=== PATIENT | female | born 2000 | race Caucasian/White ===

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

== ENCOUNTER 2018-08-25 16:39 | Emergency (ER) | payer OTHER, SELFPAY ==
--- NOTE | 2018-08-25 16:59 | RAD ---
EXAM: 3 views of the left foot HISTORY: Heel pain COMPARISON: None FINDINGS: 3 views of the left foot shows no evidence of acute fracture or dislocation. No soft tissue swelling is seen. No degenerative changes are present. IMPRESSION: No evidence of acute osseous abnormality.
== END 2018-08-25 17:36 | disposition home or self-care (01) ==
LOC: ERS 16:39
DX: M79.672 Pain in left foot (principal); F31.9 Bipolar disorder, unspecified; F17.210 Nicotine dependence, cigarettes, uncomplicated

== ENCOUNTER 2018-11-14 18:33 | Emergency (ER) | payer SELFPAY ==
[2018-11-14] MEDS ORDERED: Acetaminophen 500 MG TAB ONE (19:55)
[2018-11-14] MEDS ORDERED: Metoclopramide HCl 10 MG/2 ML VIAL ONE (19:55)
[2018-11-14] MEDS ORDERED: Ketorolac Tromethamine 30 MG/ML VIAL ONE (19:55)
[2018-11-14] MEDS ORDERED: Ondansetron PF 4 MG/2 ML Vial ONE (19:55)
--- NOTE | 2018-11-14 20:11 | CT ---
BRAIN CT WITHOUT IV CONTRAST: History: Headache. Comparison: 05-20-17 FINDINGS: No focal mass or midline shift. No intra or extraaxial hemorrhage. Sinuses and mastoids are clear. IMPRESSION: No acute intracranial process. No mass or bleed. Stable from prior study. POS: [facility]
== END 2018-11-14 22:36 | disposition home or self-care (01) ==
LOC: ERS 18:33
DX: G43.909 Migraine, unspecified, not intractable, without status migrainosus (principal); F41.9 Anxiety disorder, unspecified; F31.9 Bipolar disorder, unspecified; F17.210 Nicotine dependence, cigarettes, uncomplicated
CPT/HCPCS: 70450; 96365; 96375; J1885; J2405; J2765

== ENCOUNTER 2019-03-16 10:28 | Emergency (ER) | payer OTHER ==
--- NOTE | 2019-03-16 14:43 | ULT ---
OBSTETRIC SONOGRAM: HISTORY: Pelvic pain. Evaluate viability. Second trimester gestation. FINDINGS: Single intrauterine gestation in variable presentation. Grade 0 placenta is posterior and to the mate rnal right. Amniotic fluid is within normal limits. No gross intracranial abnormalities are apparent. Four chamber heart motion at 140 beats per minute. spine and kidneys are intact as visualized. Cervix is closed and 3.1 cm. Measurements are as follows: Biparietal diameter: 17 weeks 0 days Head circumference: 17 weeks 1 day Abdominal circumference: 17 weeks 3 days Femur length: 17 weeks 4 days Hadlock: 53rd percentile Estimated date of delivery based on today's sonogram: 08/23/2019 IMPRESSION: Single viable intrauterine gestation. Estimated gestational age 17 weeks 1 day. No abnormalities are demonstrated. POS: [facility]
[2019-03-16 17:26] LABS: Bilirubin Negative (Negative); Blood, Urine Negative (Negative); Glucose, Urine (Dipstick) Negative (Negative); Leukocyte Negative (Negative); Nitrite Negative (Negative); Protein, Urine (Dipstick) Negative (Neg-Trace); Urobilinogen 0.2 mg/dL (Less than 2)
[2019-03-16 17:27] LABS: Bacteria/HPF Rare-Few HPF (None Seen); Clarity Clear (Clear); RBC/HPF 0-3 HPF (0-3); WBC/HPF 0-3 HPF (0-3)
== END 2019-03-16 14:55 | disposition home or self-care (01) ==
LOC: ERS 10:28
DX: O99.89 Other specified diseases and conditions complicating pregnancy, childbirth and the puerperium (principal); R10.9 Unspecified abdominal pain; Z3A.17 17 weeks gestation of pregnancy
CPT/HCPCS: 76815; 81001

== ENCOUNTER 2019-03-29 14:14 | Emergency (ER) | payer OTHER ==
[2019-03-29 15:06] LABS: #Eosinphils 0.1 thou/uL (0.0-0.7); #Lymphocytes 0.9 thou/uL (1.20-3.40); #Monocytes 0.7 thou/uL (0.11-0.59); %Basophils 0.5 % (0.0-1.0); %Lymphocytes 12.7 % (28.0-48.0); %Monocytes 11.1 % (0.0-4.0); %Neutrophils 74.6 % (31.0-61.0); Hemoglobin 12.6 g/dL (12.0-16.0); Mean Corpuscular HGB CONC 35.6 g/dL (32.0-36.0); Mean Corpuscular Hemoglobin 32.9 pg (25.0-35.0); Mean Corpuscular Volume 92.5 fL (78.0-98.0); Mean Platelet Volume 7.5 fL (7.4-10.4); Platelet Count 164 thou/uL (130-400); RBC Distribution Width 11.5 % (11.5-14.5); Red Blood Cell (RBC) Count 3.84 mill/uL (4.00-5.20); White Blood Cell (WBC) Count 6.7 thou/uL (4.8-10.8)
[2019-03-29 15:27] LABS: ALT (SGPT) 24 U/L (8-55); AST (SGOT) 23 U/L (5-34); Albumin 3.9 g/dL (3.5-5.0); Alkaline Phosphatase 57 U/L (40-100); Anion Gap 14 mmol/L (10-20); BUN (Urea Nitrogen) 6 mg/dL (7.0-18.7); Bilirubin, Total 0.3 mg/dL (0.2-1.2); Calc. Creatinine Clearance 0 mL/min (70-130); Calcium 8.8 mg/dL (7.8-10.44); Carbon Dioxide 21 mmol/L (22-29); Chloride 107 mmol/L (98-107); Estimated GFR-MDRD Greater than 90; Globulin 2.7 g/dL (2.4-3.5); Glucose 73 mg/dL (70-105); Potassium 3.7 mmol/L (3.5-5.1); Protein, Total 6.6 g/dL (6.0-8.3); Sodium 138 mmol/L (136-145)
[2019-03-29] MEDS ORDERED: Acetaminophen 1,000 MG in Premix Bag 1 BAG IVPB SCH (15:45)
[2019-03-29 15:54] LABS: Bilirubin Negative (Negative); Blood, Urine Negative (Negative); Clarity Clear (Clear); Glucose, Urine (Dipstick) Normal (Negative); Leukocyte Negative Leu/uL (Negative); Nitrite Negative (Negative); Protein, Urine (Dipstick) 10 mg/dL (Neg-Trace); Urobilinogen Normal mg/dL (Less than 2)
== END 2019-03-29 18:48 | disposition home or self-care (01) ==
LOC: ERS 14:14
DX: O99.512 Diseases of the respiratory system complicating pregnancy, second trimester (principal); J10.1 Influenza due to other identified influenza virus with other respiratory manifestations; O99.332 Smoking (tobacco) complicating pregnancy, second trimester; F17.210 Nicotine dependence, cigarettes, uncomplicated; Z3A.19 19 weeks gestation of pregnancy
CPT/HCPCS: 36415; 80053; 81003; 84702; 85025; 86900; 86901; 87086; 87804; 96361; 96365; J0131

== ENCOUNTER 2019-04-04 10:44 | Outpatient (CLI) | payer OTHER ==
--- NOTE | 2019-04-04 13:23 | ULT ---
OBSTETRIC SONOGRAM: Date: 04/04/19 HISTORY: evaluation. Second trimester gestation. FINDINGS: Single intrauterine gestation in breech presentation. Cervix is closed and 4.3 cm. Grade 0 placenta i s posterior. Amniotic fluid within normal limits. Four chamber heart motion at 149 bpm. No gross intr acranial abnormalities are evident. spine and kidneys are intact as visualized. Measurements are as follows: BPD: 19 weeks/0 days HC: 19 weeks/5 days AC: 19 weeks/4 days FL: 19 weeks/6 days Hadlock: 30th percentile. Estimated date of delivery based on today's sonogram: 08/25/2019. IMPRESSION: Single, intrauterine gestation, with estimated gestational age of 19 weeks/4 days. No abnormalities a re demonstrated. POS: [facility]
== END 2019-04-04 10:45 | disposition home or self-care (01) ==
LOC: BICULT 10:44
PROVIDERS: ATTEND Family Medicine
DX: Z34.82 Encounter for supervision of other normal pregnancy, second trimester (principal); Z3A.19 19 weeks gestation of pregnancy
CPT/HCPCS: 76805

== ENCOUNTER 2019-08-17 11:08 | Day surgery (SDC) | payer OTHER ==
[2019-08-17 11:38] VITALS: BP 110/70; TEMP 97.5
[2019-08-17 11:39] VITALS: BMI 35.4
[2019-08-17] MEDS ORDERED: hydrALAZINE 20 MG/ML VIAL SLOW IVP PRN (11:56)
--- NOTE | 2019-08-17 12:37 | ULT ---
Exam: Nonstress biophysical profile HISTORY: Decreased movement. Neither KAYLEE. TECHNIQUE: Limited imaging of the gravid uterus is performed to determine the amniotic fluid index FINDINGS: Single uterine gestation. heart tones with a rate of 141 bpm Amniotic fluid index is 8.6 cm IMPRESSION: 8.6 cm amniotic fluid index. Vertebral report was given to Dr. Ortega by the information systems director 08/17/2019 at the time of examination Code CR
--- NOTE | 2019-08-18 00:21 | PRG ---
DATE OF SERVICE: 08/17/2019 PRIMARY OB: Arturo Cason MD CHIEF COMPLAINT: Nonreactive NST in the office. HISTORY OF PRESENT ILLNESS: The patient is a 18-year-old G2, P0 female, with an intrauterine at 39 weeks and 2 days, who in the office today, was noted to have reported decreased movement and was noted to have a nonreactive NST in the office and was sent here for evaluation. The patient is scheduled on Thursday for an elective induction of labor. The patient denies any recent illness, fever, cough, headache, chest pain, shortness of breath, nausea, vomiting, diarrhea, constipation, hip problems, knee problems, muscle weakness. She denies vaginal bleeding, leakage of fluid, urinary urgency or frequency. PAST MEDICAL HISTORY: Negative. PAST SURGICAL HISTORY: Anxiety and depression. PAST SURGICAL HISTORY: Negative. ALLERGIES: BENADRYL AND THE GARDASIL VACCINE. MEDICATIONS: vitamins. SOCIAL HISTORY: The patient reports she smokes 3 to 4 cigarettes a day. Denies drug or other drug or alcohol use. OB LABS: Unavailable at time of dictation. REVIEW OF SYSTEMS: Per HPI. PHYSICAL EXAMINATION: VITAL SIGNS: Blood pressure is 113/76, heart rate of 91, respiratory rate of 16, temperature 98.2. GENERAL: She appears to be in no acute distress. She is alert and oriented, cooperative, and pleasant to interact with. HEENT: Head, normocephalic and atraumatic. LUNGS: Clear to auscultation bilaterally. HEART: Has a regular rate and rhythm. ABDOMEN: Gravid, soft, nontender. PELVIC: She does have some tenderness with deviation of the uterus to the left and right consistent with ligamentous pain. Cervical exam has been deferred at this time as she reports she was [address] Cason's office earlier. heart tracing shows the fetus with a baseline in the 130s with moderate long-term variability, positive 15 x 15 accelerations. Tocometer showing irritability with contractions about every 2 to 3 minutes, not all felt by the patient. IMAGING: Bedside ultrasound was performed for KAYLEE with KAYLEE of 8.6. ASSESSMENT AND PLAN: The patient is a 18-year-old, G2, P0 female, with an intrauterine at 39 weeks and 2 days, presented for decreased movement and a nonreactive NST in the office. Here, the NST was reactive with a normal KAYLEE keeping reassuring modified BPP. The patient is scheduled for induction of labor on Thursday and has been asked to call here at 5:00 in the evening. She has also been given an appointment for Coronavirus disease-19 testing two days prior to her hospital policy. Fetus has a reactive NST category 1 tracing. The patient is being discharged home. Her primary OB Dr. Cason has been updated. Job ID: [id number]
== END 2019-08-17 13:00 | disposition home health service, planned readmission (86) ==
LOC: L&D/OP 11:08
PROVIDERS: ATTEND Family Medicine
DX: O36.8130 Decreased fetal movements, third trimester, not applicable or unspecified (principal); O99.333 Smoking (tobacco) complicating pregnancy, third trimester; F17.210 Nicotine dependence, cigarettes, uncomplicated; Z3A.39 39 weeks gestation of pregnancy; Z88.7 Allergy status to serum and vaccine; Z88.8 Allergy status to other drugs, medicaments and biological substances
CPT/HCPCS: 76815

== ENCOUNTER 2019-08-20 04:55 | Outpatient (CLI) | payer OTHER ==
[2019-08-20 17:14] LABS: SARS-CoV-2 MS2 Positive; SARS-CoV-2 N Gene Negative; SARS-CoV-2 S Gene Negative; SARS-CoV-2 orf1ab Negative
== END 2019-08-20 04:56 | disposition home or self-care (01) ==
LOC: ERS 04:55
PROVIDERS: ATTEND Family Medicine
DX: Z11.59 Encounter for screening for other viral diseases (principal)
CPT/HCPCS: 87635; U0003

== ENCOUNTER 2019-08-21 10:56 | Inpatient (IN) | payer OTHER ==
[2019-08-21 11:20] VITALS: BMI 35.4
[2019-08-21] MEDS ORDERED: Promethazine HCl 25 MG/ML VIAL IM PRN ×3 (11:57→14:26)
[2019-08-21] MEDS ORDERED: Misoprostol 200 MCG TAB PR PRN (11:57)
[2019-08-21] MEDS ORDERED: Carboprost 250 MCG/ML AMP IM PRN (11:57)
[2019-08-21] MEDS ORDERED: Butorphanol Tartrate 1 MG/ML VIAL SLOW IVP PRN (11:57)
[2019-08-21] MEDS ORDERED: Methylergonovine 0.2 MG/ML VIAL IM PRN (11:57)
[2019-08-21] MEDS ORDERED: HYDROcodone/Acetaminophen 5/325 mg Tablet PO PRN (11:57)
[2019-08-21] MEDS ORDERED: Ondansetron PF 4 MG/2 ML Vial IVP PRN ×4 (11:57→19:54)
[2019-08-21] MEDS ORDERED: Lidocaine 1% (PF) 30 ML VIAL SC PRN (11:57)
[2019-08-21] MEDS ORDERED: hydrALAZINE 20 MG/ML VIAL SLOW IVP PRN ×2 (11:57→19:54)
[2019-08-21] MEDS ORDERED: Diphenoxylate HCl/Atropine Tablet PO PRN (11:57)
[2019-08-21] MEDS ORDERED: Ibuprofen 800 MG TAB PO PRN (11:57)
[2019-08-21] MEDS ORDERED: Penicillin G Potassium 5 MILL.UNITS in Sodium Chloride 0.9% 100 ML IVPB SCH (12:00)
[2019-08-21] MEDS ORDERED: NS w/ Oxytocin 10 units 500 ML IV SCH ×2 (12:00)
[2019-08-21] MEDS: Lactated Ringer's 1,000 ML IV SCH ×2 (12:22→13:49)
[2019-08-21 12:33] LABS: Mean Corpuscular HGB CONC 33.4 g/dL (32.0-36.0); Mean Corpuscular Hemoglobin 29.8 pg (25.0-35.0); Mean Corpuscular Volume 89.2 fL (78.0-98.0); Mean Platelet Volume 7.7 fL (7.4-10.4); Platelet Count 289 thou/uL (130-400); RBC Distribution Width 12.3 % (11.5-14.5); Red Blood Cell (RBC) Count 4.37 mill/uL (4.00-5.20); White Blood Cell (WBC) Count 16.6 thou/uL (4.8-10.8)
[2019-08-21] MEDS ORDERED: Fentanyl 4 mcg/Bup 0.1% Cadd 100 ML ONE (12:45)
[2019-08-21] MEDS ORDERED: Lidocaine 1% (PF) 30 ML VIAL ONE (12:58)
[2019-08-21] MEDS ORDERED: NS / Oxytocin 40 units/1000ml 1,000 ML ONE (12:58)
[2019-08-21 13:18] LABS: HBSAg Index 0.13 S/CO (0-0.99); Hep B Surf Ag Non-Reactive S/CO (NonReactive); Syphilis Antibody Nonreactive (Nonreactive); Syphilis Antibody Index 0.03 S/CO (<1.00 Non-Reactive)
[2019-08-21] MEDS ORDERED: Bupivacaine 0.5% 10 ML VIAL ONE (13:19)
[2019-08-21] MEDS ORDERED: Fentanyl 100 MCG/2 ML VIAL ONE (13:19)
[2019-08-21] MEDS ORDERED: Naloxone HCl 0.4 mg/ml Vial IVP PRN ×4 (14:23→14:26)
[2019-08-21] MEDS ORDERED: EPHEDRINE 25 MG/5 ML SYRINGE SLOW IVP PRN ×2 (14:23→14:26)
[2019-08-21] MEDS ORDERED: Lactated Ringer's 500 ML IV PRN ×2 (14:23→14:26)
[2019-08-21] MEDS ORDERED: Fentanyl 100 MCG/2 ML VIAL I-THECAL ONE (14:23)
[2019-08-21] MEDS ORDERED: Acetaminophen 325 MG TAB PO PRN ×2 (14:23→14:26)
[2019-08-21] MEDS ORDERED: Bupivacaine 0.25% 10 ML VIAL EPIDURAL ONE (14:23)
[2019-08-21] MEDS ORDERED: Fentanyl 4 mcg/Bupivacaine 0.1% Cassette 100 ML EPIDURAL SCH (14:30)
[2019-08-21] MEDS ORDERED: Communication Order-Pharmacy FS SCH ×2 (14:30)
--- NOTE | 2019-08-21 15:41 | PDOC.LDPN ---
Labor & Delivery Progress Note - Subjective Subjective: comfortable - Objective Vital signs reviewed and normal: yes General: NAD, resting Uterine fundus: non tender Dilation: 9 Effacement: 100% Station: 0 FHT: category 1 [place] contractions every: 2-3 mins AROM: clear fluid Plan: continue plan of care
[2019-08-21] MEDS ORDERED: Penicillin G 2.5 MILL.units 2.5 MILL.UNITS in Premix Bag 1 BAG IVPB SCH (16:00)
[2019-08-21] MEDS: NS / Oxytocin 40 units/1000ml 1,000 ML IV PRN ×2 (17:58→19:38)
[2019-08-21] MEDS ORDERED: Bisacodyl 10 MG SUPP PR PRN (19:54)
[2019-08-21] MEDS ORDERED: Lanolin Ointment 7 GM TUBE TOP PRN (19:54)
[2019-08-21] MEDS ORDERED: diphenhydrAMINE 25 MG CAP PO PRN (19:54)
[2019-08-21] MEDS ORDERED: Benzocaine-Menthol 82.5 ML CAN TOP PRN (19:54)
[2019-08-21] MEDS ORDERED: NS / Oxytocin 40 units/1000ml 1,000 ML IV SCH (19:54)
[2019-08-21] MEDS ORDERED: Milk Of Magnesia 30 ML UDCUP PO PRN (19:54)
[2019-08-21] MEDS: Docusate Calcium (SURFAK) 240 MG CAP PO SCH (21:55)
[2019-08-21] MEDS: Ibuprofen 800 MG TAB PO SCH (21:55)
[2019-08-21] MEDS: HYDROcodone/Acetaminophen 5/325 mg Tablet PO PRN (23:20)
[2019-08-22] MEDS ORDERED: Sodium Chloride 0.9% 10 ML ONE (00:25)
[2019-08-22] MEDS: HYDROcodone/Acetaminophen 5/325 mg Tablet PO PRN ×4 (04:19→21:01)
[2019-08-22] MEDS: Ibuprofen 800 MG TAB PO SCH ×3 (05:41→22:03)
[2019-08-22 06:52] LABS: Hemoglobin 10.8 g/dL (12.0-16.0); Mean Corpuscular HGB CONC 32.4 g/dL (32.0-36.0); Mean Corpuscular Hemoglobin 29.2 pg (25.0-35.0); Mean Platelet Volume 7.8 fL (7.4-10.4); Platelet Count 229 thou/uL (130-400); RBC Distribution Width 12.2 % (11.5-14.5); Red Blood Cell (RBC) Count 3.71 mill/uL (4.00-5.20); White Blood Cell (WBC) Count 19.5 thou/uL (4.8-10.8)
[2019-08-22] MEDS: Ferrous Sulfate 325 MG TAB PO SCH ×2 (08:45→17:32)
[2019-08-22] MEDS: Docusate Calcium (SURFAK) 240 MG CAP PO SCH ×2 (08:54→22:03)
[2019-08-22] MEDS: Prenatal Vitamin 1 TAB PO SCH (08:54)
[2019-08-22] MEDS ORDERED: Adacel (T-DAP) 0.5 ML SYRINGE IM ONE (09:00)
[2019-08-23] MEDS: Ibuprofen 800 MG TAB PO SCH (05:33)
[2019-08-23 07:41] VITALS: BP 122/77; TEMP 97.6
[2019-08-23] MEDS: HYDROcodone/Acetaminophen 5/325 mg Tablet PO PRN (08:21)
[2019-08-23] MEDS: Docusate Calcium (SURFAK) 240 MG CAP PO SCH (08:21)
[2019-08-23] MEDS: Prenatal Vitamin 1 TAB PO SCH (08:21)
[2019-08-23] MEDS: Ferrous Sulfate 325 MG TAB PO SCH (08:21)
== END 2019-08-23 10:30 | disposition home or self-care (01) | DRG 807 ==
LOC: L&D/OP 10:56 → L&D 12:00 → 3SW 21:02
PROVIDERS: ADMIT Family Medicine; ATTEND Family Medicine
PROC: 10E0XZZ Delivery of Products of Conception, External Approach (ICD-10-PCS; principal; 2019-08-21)
PROC: 10907ZC Drainage of Amniotic Fluid, Therapeutic from Products of Conception, Via Natural or Artificial Opening (ICD-10-PCS; 2019-08-21)
PROC: 0W8NXZZ Division of Female Perineum, External Approach (ICD-10-PCS; 2019-08-21)
PROC: 0HQ9XZZ Repair Perineum Skin, External Approach (ICD-10-PCS; 2019-08-21)
DX: O69.81X0 Labor and delivery complicated by cord around neck, without compression, not applicable or unspecified (principal); Z37.0 Single live birth; Z3A.39 39 weeks gestation of pregnancy; O99.824 Streptococcus B carrier state complicating childbirth; O70.0 First degree perineal laceration during delivery
CPT/HCPCS: 36415; 76815; 85027; 85461; 86780; 86850; 86870; 86900; 86901; 87340; 90384; 96372; J0595; J2001; J2540; J3010; J3490

== ENCOUNTER 2020-05-15 16:55 | Emergency (ER) | payer OTHER ==
[~2020-05-15 16:55] MED LIST: Iopamidol-370 76% 500 ML 1 ML ONE
[2020-05-15] MEDS ORDERED: Morphine 4 MG/ML VIAL ONE (17:22)
[2020-05-15] MEDS ORDERED: Ondansetron PF 4 MG/2 ML Vial ONE (17:22)
[2020-05-15 17:38] LABS: #Basophils 0.1 thou/uL (0.0-0.2); #Eosinphils 0.5 thou/uL (0.0-0.7); #Lymphocytes 3.2 thou/uL (1.20-3.40); #Monocytes 0.9 thou/uL (0.11-0.59); #Neutrophils 7.4 thou/uL (1.40-6.50); %Basophils 0.7 % (0.0-1.0); %Eosinophils 4.3 % (0.0-10.0); %Lymphocytes 26.2 % (21.0-51.0); %Monocytes 7.8 % (0.0-10.0); Hemoglobin 16.2 g/dL (12.0-16.0); Mean Corpuscular HGB CONC 34.1 g/dL (32.0-36.0); Mean Corpuscular Hemoglobin 30.6 pg (27.0-31.0); Mean Corpuscular Volume 89.6 fL (78.0-98.0); Mean Platelet Volume 7.5 fL (7.4-10.4); Platelet Count 313 thou/uL (130-400); RBC Distribution Width 12.1 % (11.5-14.5); White Blood Cell (WBC) Count 12.1 thou/uL (4.8-10.8)
[2020-05-15 17:40] LABS: Bacteria/HPF None Seen HPF (None Seen); Bilirubin Negative (Negative); Blood, Urine Negative (Negative); Clarity Clear (Clear); Glucose, Urine (Dipstick) Normal (Negative); Ketone, Urine Negative (Negative); Leukocyte 25 Leu/uL (Negative); Nitrite Negative (Negative); Protein, Urine (Dipstick) Negative (Neg-Trace); RBC/HPF None Seen HPF (0-3); Specific Gravity, Urine 1.022 (1.002-1.036); Urobilinogen Normal mg/dL (Less than 2); WBC/HPF 0-3 HPF (0-3)
[2020-05-15 17:42] LABS: Pregnancy Test - Urine (BHCG) Negative (Negative); Pregu Control Background? CLEAR/WHITE (CLR/WHITE); Pregu Control Bar Appear? YES (CONTROL BAR); Specific Gravity 1.022 (1.002-1.036)
[2020-05-15 18:08] LABS: ALT (SGPT) 31 U/L (8-55); AST (SGOT) 29 U/L (5-34); Albumin 4.4 g/dL (3.5-5.0); Alkaline Phosphatase 79 U/L (40-110); Anion Gap 15 mmol/L (10-20); BUN (Urea Nitrogen) 8 mg/dL (7.0-18.7); Bilirubin, Total 0.3 mg/dL (0.2-1.2); Calc. Creatinine Clearance 0 mL/min (70-130); Calcium 8.9 mg/dL (7.8-10.44); Carbon Dioxide 19 mmol/L (22-29); Chloride 109 mmol/L (98-107); Globulin 3.3 g/dL (2.4-3.5); Glucose 93 mg/dL (70-105); Lipase 56 U/L (8-78); Potassium 4.1 mmol/L (3.5-5.1); Protein, Total 7.7 g/dL (6.0-8.3); Sodium 139 mmol/L (136-145)
--- NOTE | 2020-05-15 18:54 | CT ---
CT ABDOMEN AND PELVIS WITH IV CONTRAST 05/15/2020 CLINICAL INFORMATION: Bilateral lower quadrant pain and fever. Nausea and vomiting. COMPARISON: 05/07/2017 Technique: Multiple contiguous axial CT images are obtained through the abdomen and pelvis with IV contrast. Cor onal reformatted images are provided. FINDINGS: Lower Chest: Lung bases are clear. Vessels: Abdominal aorta is normal in caliber. Abdomen: Portal vein:Patent Gallbladder: Within normal limits for CT imaging. Liver: There is a subcentimeter focus of enhancement in the medial segment left hepatic lobe (image 2 8, series 2) as well as a much smaller subcentimeter focus of enhancement seen in the inferior aspect posterior segment right hepatic lobe. These areas are too small to further characterize but mo st suggestive of benign findings not requiring additional follow-up in a patient of this age. Spleen: within normal limits. Pancreas: within normal limits. Adrenals: within normal limits. Kidneys: within normal limits. Bowel: Normal caliber. Appendix: The appendix is visualized and normal in caliber. Peritoneum: No ascites or free air; no fluid collection. Mesentery and Retroperitoneum: No enlarged mesenteric or retroperitoneal lymph nodes. Abdominal Wall: within normal limits. Pelvis: Reproductive Organs: Slight nonspecific heterogeneity of the uterus likely related to phase of enhanc ement. Adnexal structures have a normal CT appearance for patient's age. Bladder: within normal limits. Bones: No suspicious lytic or sclerotic osseous lesions. IMPRESSION: No acute findings in the abdomen or pelvis.
== END 2020-05-15 19:16 | disposition home or self-care (01) ==
LOC: ERS 16:55
DX: R10.32 Left lower quadrant pain (principal); R10.31 Right lower quadrant pain; R11.0 Nausea; F17.210 Nicotine dependence, cigarettes, uncomplicated
CPT/HCPCS: 36415; 74177; 80053; 81003; 81015; 81025; 83690; 85025; 96374; 96375; J2270; J2405; Q9967